=== PATIENT | male | born 1990 | race Caucasian/White ===

== ENCOUNTER 2016-12-07 07:00 | Emergency (ER) | payer OTHER ==
[~2016-12-07] VITALS: Ht 180.3 cm; Wt 113.9 kg
[~2016-12-07 07:00] MED LIST: ALBU-136 IH; AMOX-842 PO; FLO110 INH; LEVO750T2 PO
[2016-12-07 07:13] VITALS: BP 113/77
--- NOTE | 2016-12-07 07:19 | NUR ---
PATIENT PRESENTS TO ED WITH RIGHT HAND PAIN X2 MONTHS. PT STATES HANDS ARE DRY AND CRACKED; DENIES N/V/D; SKIN IS PINK/WARM/DRY; AAOX4 WITH EVEN AND STEADY GAIT; LUNGS CLEAR BL; HR EVEN AND REGULAR; PT DENIES ANY FEVER, CP, SOB, OR COUGH AT THIS TIME; PATIENT STATES PAIN OF 4/10 AT THIS TIME; VSS; PATIENT POSITIONED FOR COMFORT; HOB ELEVATED; BEDRAILS UP X2; BED DOWN. ER MD MADE AWARE OF PT STATUS.
[2016-12-07 07:33] VITALS: BP 111/76
--- NOTE | 2016-12-07 07:33 | NUR ---
Patient discharged with v/s stable. Written and verbal after care instructions given and explained. Patient alert, oriented and verbalized understanding of instructions. Ambulatory with steady gait. All questions addressed prior to discharge. ID band removed. Patient advised to follow up with PMD. Rx of TYLENOL, TRAMCINOLONE TOPICAL CREAM given. Patient educated on indication of medication including possible reaction and side effects. Opportunity to ask questions provided and answered.
== END 2016-12-07 07:33 | disposition home or self-care (01) ==
LOC: MED 07:00
DX: L30.1 Dyshidrosis [pompholyx] (principal)
CPT/HCPCS: 99283

== ENCOUNTER 2017-01-20 16:31 | Emergency (ER) | payer OTHER ==
[~2017-01-20] VITALS: Ht 180.3 cm; Wt 115.7 kg
[~2017-01-20 16:31] MED LIST changes: -ALBU-136 IH; -AMOX-842 PO; +AMOXICILLIN500 MG PO; +AUGMENTIN 875 M1 TAB PO; -FLO110 INH; +FLOVENT HF110 MCG/AC INH; +LEVAQUIN750 MG PO; -LEVO750T2 PO; +PROAIR HFA0.09 MG/Ac IH
[2017-01-20 16:46] VITALS: BP 135/71
--- NOTE | 2017-01-20 16:51 | NUR ---
PT AMBULATED TO BED 7 AT THIS TIME.
--- NOTE | 2017-01-20 16:53 | NUR ---
26M BIB SELF C/O SKIN PEELING TO BL HANDS X 5 MONTHS; BL HANDS SKIN DRIED, PEELED,REDNESS & SCABS NOTED AT THIS TIME; NO ACTIVE BLEEDING NOTED TO SITES AT THIS TIME. PT C/O STINGING PAIN TO BL HANDS, NON-RADIATING, 6/10 X 5 MONTHS; STATES WORSENED SINCE LAST VISIT TO [place] [facility] IN NOVEMBER; PT STATES TAKING TRIAMCINOLONE ACETONIDE 0.1% W/ MINIMAL RELIEF; PT A&OX4, PERRLA, BL LUNG SOUNDS CLEAR, RR EVEN/UNLABORED, SKIN IS WARM/DRY AT THIS TIME; PT DENIES N/V/D AT THIS TIME; HX: ECZEMA; STEADY GAIT; PT RESTING IN BED W/ HOB ELEVATED AND IN LOWEST POSITION; POSITIONED FOR COMFORT; ER MD MADE AWARE OF STATUS. WILL CONTINUE TO MONITOR.
--- NOTE | 2017-01-20 17:06 | NUR ---
ER MD DR. LAWRENCE EVALUATING PT AT BEDSIDE.
[2017-01-20 17:16] VITALS: BP 115/72
--- NOTE | 2017-01-20 17:16 | NUR ---
Patient discharged with v/s stable. Written and verbal after care instructions given and explained. Patient alert, oriented and verbalized understanding of instructions. with to car. All questions addressed prior to discharge. ID band removed. Patient advised to follow up with PMD. Rx of BACTIM DS 800MG-160MG TAB, KEFLEX 500MG, PREDNISON 20MG TAB & MUPIROCIN 2 % TOPICAL OINTMENT given. Patient educated on indication of medication including possible reaction and side effects. Opportunity to ask questions provided and answered.
== END 2017-01-20 17:16 | disposition home or self-care (01) ==
LOC: MED 16:31
DX: L30.9 Dermatitis, unspecified (principal)

== ENCOUNTER 2017-11-28 19:54 | Emergency (ER) | payer OTHER ==
[~2017-11-28] VITALS: Ht 180.3 cm; Wt 117.9 kg
[2017-11-28 20:01] VITALS: BP 125/58
--- NOTE | 2017-11-28 21:59 | NUR ---
PT TAKEN TO BED 3
--- NOTE | 2017-11-28 22:00 | NUR ---
PATIENT PRESENTS TO ED WITH BREAST PAIN 4/10 WITH COMPLAINTS OF REDDNES AND INFLAMATION . DENIES N/V/D; SKIN IS PINK/WARM/DRY; AAOX4 WITH EVEN AND STEADY GAIT; LUNGS CLEAR BL; HR EVEN AND REGULAR; PT DENIES ANY FEVER, CP, SOB, OR COUGH AT THIS TIME; PATIENT STATES PAIN OF 0/10 AT THIS TIME; VSS; PATIENT POSITIONED FOR COMFORT; HOB ELEVATED; BEDRAILS UP X2; BED DOWN. ER MD MADE AWARE OF PT STATUS.
[2017-11-28 23:22] VITALS: BP 142/78
--- NOTE | 2017-11-28 23:22 | NUR ---
Patient discharged with v/s stable. Written and verbal after care instructions given and explained. Patient alert, oriented and verbalized understanding of instructions. Ambulatory with steady gait.All questions addressed prior to discharge. ID band removed. Patient advised to follow up with PMD. Rx of BACTRIM DS 800MG-160MG TABLET AND KEFLEX 500MG Given. Patient educated on indication of medication including possible reaction and side effects. Opportunity to ask questions provided and answered. Addendum: 11/28/17 at 2344 by [email or web address] Patient discharged with v/s stable. Written and verbal after care instructions given and explained. Patient alert, oriented and verbalized understanding of instructions. Ambulatory with steady gait.All questions addressed prior to discharge. ID band removed. Patient advised to follow up with PMD. Rx of BACTRIM DS 800MG-160MG TABLET AND KEFLEX 500MG WELL MOTRIN 800MG Given. Patient educated on indication of medication including possible reaction and side effects. Opportunity to ask questions provided and answered.
== END 2017-11-28 23:22 | disposition home or self-care (01) ==
LOC: MED 19:54
DX: N61.0 Mastitis without abscess (principal)
CPT/HCPCS: 99283